=== PATIENT | female | born 1995 | race Two or more races ===

== ENCOUNTER 2016-03-23 22:47 | Emergency (ER) | payer OTHER ==
[2016-03-23] MEDS ORDERED: NS 0.9% 1000 ML* 1,000 ML IV ONE (23:13)
[2016-03-23] MEDS ORDERED: Ondansetron INJ* 2 MG/ML VIAL IV ONE (23:20)
--- NOTE | 2016-03-23 23:21 | ED ---
GI/ HPI - HPI Summary HPI Summary: 20 F presents with lightheadness, nausea, and vomiting since this evening. She states she started vomiting after dinner and feeling lightheaded. She states she blackout a couple times but did not hit her head. She denies any fever. She states that she has heartburn like pain in her upper abdomen. She states that she took some pepto bismol which she threw up. She says she tried to eat something after she became lightheaded but threw it back up. She states that she has been dry heave since. She denies any SOB, diarrhea, constipation, or chest pain. She denies change that she is . She denies any vaginal discharge or dysuria. She states that the people in her house have similar symptoms. - History of Current Complaint Chief Complaint: EDFluSymptoms Time Seen by Provider: 03/23/16 23:11 Stated Complaint: FLU LIKE SYMPTOMS Pain Intensity: 6 - Allergy/Home Medications Allergies/Adverse Reactions: Allergies Allergy/AdvReac Type Severity Reaction Status Date / Time No Known Allergies Allergy Verified 11/08/14 02:44 PMH/Surg Hx/FS Hx/Imm Hx Endocrine/Hematology History: Denies: Hx Anticoagulant Therapy Cardiovascular History: Denies: Hx Hypertension Infectious Disease History: No Infectious Disease History: Denies: Traveled Outside the [place] in Last 30 Days - Family History Known Family History: Positive: Other - LAMA per pt - Social History Alcohol Use: Rare Hx Substance Use: No Substance Use Type: Reports: None Hx Tobacco Use: No Smoking Status (MU): Never Smoked Tobacco Review of Systems Negative: Fever Negative: Chest Pain Negative: Shortness Of Breath Positive: Abdominal Pain - heart burn like pain, Vomiting, Nausea. Negative: Diarrhea Positive: Weakness All Other Systems Reviewed And Are Negative: Yes Physical Exam Triage Information Reviewed: Yes Vital Signs On Initial Exam: Initial Vitals Temp Pulse Resp BP Pulse Ox 98.9 F 89 18 104/80 100 03/23/16 22:49 03/23/16 22:49 03/23/16 22:49 03/23/16 22:49 03/23/16 22:49 Vital Signs Reviewed: Yes Appearance: Positive: Ill-Appearing Skin: Positive: Warm, Dry Head/Face: Positive: Normal Head/Face Inspection Eyes: Positive: Normal, Conjunctiva Clear ENT: Positive: Normal ENT inspection, Pharynx normal, TMs normal Respiratory/Lung Sounds: Positive: Clear to Auscultation, Breath Sounds Present Cardiovascular: Positive: Normal, RRR Abdomen Description: Positive: Nontender, Soft. Negative: Guarding Bowel Sounds: Positive: Present Diagnostics - Vital Signs Vital Signs Temp Pulse Resp BP Pulse Ox 03/23/16 22:49 98.9 F 89 18 104/80 100 - Laboratory Result Diagrams: 03/23/16 23:25 03/23/16 23:25 Lab Statement: Any lab studies that have been ordered have been reviewed, and results considered in the medical decision making process. - EKG No standard instances Cardiac Rate: NL EKG Rhythm: Sinus Rhythm ST Segment: Normal Ectopy: None Re-Evaluation - Re-Evaluation First Eval Re-Evaluation Time: 00:07 Change: Improved Comment: nausea is resolved GIGU Course/Dx - Course Course Of Treatment: 20 F presents with n/v and lightheadness today, similiar symptoms in house living at, blackout a couple times, EKG normal, states has heartburn like upper abdominal pain, abdominal exam normal, neg nance do not suspect gallbladder disease, will get labs and zofran likely gastroenteritis due to friends with similiar symptoms, labs: has WBC count but rest of labs normal, flu negative, u/a normal, discussed results with patient, feeling better with fluids and zofran, discussed that is likely viral practice good hand washing and follow brat diet, patient agrees with plan - Diagnoses Differential Diagnoses - Female: Dehydration, Esophagitis/Gastritis, Gall Bladder Disease, Urinary Tract Infection, Vomiting Provider Diagnoses: Nausea and vomiting Discharge - Discharge Plan Condition: Good Disposition: HOME Prescriptions: Ondansetron TAB* [Zofran Tab*] 4 mg PO Q6H PRN #10 tab PRN Reason: Nausea Patient Education Materials: Acute Nausea and Vomiting (ED) Referrals: [facility] ANNELIESE Mosley [Primary Care Provider] - Additional Instructions: Take zofran every 6 hours for nausea as needed Drink small amounts of fluid as tolerated When able to eat follow BRAT diet: Bananas, rice, applesauce, toast Take ibuprofen or Tylenol for pain as needed every 6 hours Follow up with primary within 5 days if no improvement Return to ED if develop fever that does not respond to Tylenol or ibuprofen, severe abdominal pain, or any new or worsening symptoms
[2016-03-23 23:37] LABS: Hematocrit 42 % (35-47); Hemoglobin 13.8 g/dl (12.0-16.0); Mean Corpuscular HGB Conc 33 g/dl (31-36); Mean Corpuscular Hemoglobin 29 pg (27-31); Mean Corpuscular Volume 88 fL (80-97); Mean Platelet Volume 8 um3 (7.4-10.4); Red Blood Count 4.77 10^6/ul (4.0-5.4); Red Cell Distribution Width 14 % (10.5-15); White Blood Count 14.1 10^3/ul (3.5-10.8)
[2016-03-23 23:40] LABS: Add Diff/Slide Review? Slide Review Added; Comments Flag Yes
[2016-03-23 23:56] LABS: Albumin 4.6 g/dL (3.2-5.2); BUN/Creatinine Ratio 20.8 (8-20); Calcium 9.6 mg/dL (8.6-10.3); EGFR African American 124.2 (>60); EGFR Non-African American 96.6 (>60); Potassium 4.1 mmol/L (3.5-5.0); Total Protein 7.6 g/dL (6.4-8.9)
[2016-03-24] MEDS ORDERED: Ondansetron ODT TAB* 4 MG PO ONE (00:03)
[2016-03-24 00:21] VITALS: BP 110/70
[2016-03-24 00:42] LABS: Urine Bilirubin Negative (Negative); Urine Glucose Negative (Negative); Urine Nitrite Negative (Negative)
== END 2016-03-24 00:20 | disposition home or self-care (01) ==
LOC: ED 22:47
DX: R11.2 Nausea with vomiting, unspecified (principal); R42 Dizziness and giddiness; R10.9 Unspecified abdominal pain; R53.1 Weakness
CPT/HCPCS: 36415; 80053; 81003; 85025; 87502; 93005; 96374; 99281; A9270-GY; J2405